=== PATIENT | female | born 1965 | race Caucasian/White ===

== ENCOUNTER 2021-08-16 14:22 | Emergency (ER) | payer BC, OTHER ==
[2021-08-16] MEDS ORDERED: SOTROVIMAB 500 MG in SODIUM CHLORIDE 100 ML IVPB ONE (14:29)
[2021-08-16 14:30] VITALS: BP 148/86; PULSE 72; TEMP 100.7; BMI 38.3
[2021-08-16] MEDS ORDERED: ONDANSETRON 4 MG/2 ML VIAL IVPUSH ONE (14:39)
[2021-08-16] MEDS ORDERED: ONDANSETRON 4 MG/2 ML VIAL ONE (15:02)
== END 2021-08-16 17:20 | disposition home or self-care (01) ==
LOC: JCOVINFU 14:22
DX: U07.1 COVID-19 (principal)
CPT/HCPCS: 99284-25; M0247; Q0247